=== PATIENT | female | born 1960 ===

== ENCOUNTER 2023-07-09 05:11 | Day surgery (SDC) | payer OTHER ==
[2023-07-03 08:58] LABS: HEMATOCRIT 38.4 % (36.0-45.00); MEAN CELL VOLUME 86.3 fL (80.00-100.00); MEAN CORPUSCULAR HEMOGLOBIN 29.3 pg (27.00-32.0); PLATELET COUNT 190 K/uL (150-450); RED BLOOD COUNT 4.45 M/uL (4.00-6.00); RED CELL DISTRIBUTION WIDTH 13.8 % (11.5-14.5)
[2023-07-03 09:34] LABS: BILIRUBIN TOTAL 0.54 mg/dL (0.3-1.2); CREATININE SERUM 0.79 mg/dL (0.55-1.02); GFR 73.04; GLOBULINA 3.8 G/DL (2.4-3.5); POTASSIUM 5.18 mEq/L (3.5-5.1); TOTAL PROTEIN 7.8 gm/dL (6.4-8.2)
[2023-07-03 09:46] LABS: INR 1.04; PROTHROMBIN TIME 10.9 SECONDS (9.0-11.5)
[2023-07-03 09:51] LABS: URINE APPEARANCE Clear; URINE BILIRRUBIN Negative (NEGATIVE); URINE BLOOD Negative; URINE COLOR Yellow; URINE GLUCOSE Negative (NEGATIVE); URINE LEUKOCYTE Negative; URINE NITRATE Negative; URINE PROTEIN Negative (NEGATIVE); URINE UROBILINOGEN 0.2 E.U./dl
[2023-07-03 09:56] LABS: URINE BACTERIA 95.7 uL (0.0-1933); URINE EPITHELIAL CELLS 3.7 uL (0.0-38.8); URINE RBC 2.2 uL (0.0-20.8); URINE WBC 2.7 uL (0.0-23.2)
[~2023-07-09] VITALS: Ht 162.6 cm; Wt 64.0 kg
[~2023-07-09 05:11] MED LIST: ERYTHROMYCIN500 M1 PO; LIPITOR20 MG PO; PEPCID AC20 MG PO; TOPROL XL25 M1 PO; TRAMADOL HCL-AP1 TAB PO; VITAMIN D310 MCG/1 M PO; ZESTRIL10 M1 PO
== END 2023-07-09 20:45 | disposition home or self-care (01) ==
LOC: CIR.AMB 05:11
PROVIDERS: ATTEND Obstetrics & Gynecology
DX: N87.1 Moderate cervical dysplasia (principal); N72 Inflammatory disease of cervix uteri; I10 Essential (primary) hypertension; E78.5 Hyperlipidemia, unspecified; Z20.822 Contact with and (suspected) exposure to COVID-19; Z88.0 Allergy status to penicillin